=== PATIENT | male | born 1975 | race Two or more races ===

== ENCOUNTER 2020-09-26 22:49 | Emergency (ER) | payer OTHER ==
[~2020-09-26] VITALS: Ht 182.9 cm; Wt 136.1 kg
== END 2020-09-27 01:37 | disposition home or self-care (01) ==
LOC: ER 22:49
DX: B34.9 Viral infection, unspecified (principal); Z03.818 Encounter for observation for suspected exposure to other biological agents ruled out

== ENCOUNTER 2020-10-18 09:30 | Outpatient (CLI) | payer OTHER | END 2020-10-18 15:00 | disposition home or self-care (01) | LOC: PPH VACUNA 09:30 | DX: Z23 Encounter for immunization (principal) ==

== ENCOUNTER 2020-10-31 21:59 | Emergency (ER) | payer OTHER ==
[~2020-10-31] VITALS: Ht 182.9 cm; Wt 136.1 kg
== END 2020-10-31 22:39 | disposition home or self-care (01) ==
LOC: ER 21:59
DX: B34.9 Viral infection, unspecified (principal); Z20.828 Contact with and (suspected) exposure to other viral communicable diseases

== ENCOUNTER 2021-06-10 16:44 | Emergency (ER) | payer OTHER ==
[~2021-06-10] VITALS: Ht 177.8 cm; Wt 117.9 kg
== END 2021-06-10 18:11 | disposition home or self-care (01) ==
LOC: ER 16:44
DX: R05 Cough (principal); Z20.822 Contact with and (suspected) exposure to COVID-19

== ENCOUNTER 2021-07-31 08:00 | Outpatient (CLI) | payer OTHER | END 2021-07-31 08:30 | disposition home or self-care (01) | LOC: PPH VACUNA 08:00 | PROVIDERS: ATTEND Emergency Medicine Pediatric Emergency Medicine | DX: Z23 Encounter for immunization (principal) ==

== ENCOUNTER 2021-10-24 18:33 | Emergency (ER) | payer OTHER ==
[~2021-10-24] VITALS: Ht 182.9 cm; Wt 136.1 kg
== END 2021-10-24 20:09 | disposition home or self-care (01) ==
LOC: ER 18:33
DX: U07.1 COVID-19 (principal)

== ENCOUNTER 2021-10-30 11:53 | Emergency (ER) | payer OTHER ==
[~2021-10-30] VITALS: Ht 180.3 cm; Wt 95.3 kg
== END 2021-10-30 13:20 | disposition home or self-care (01) ==
LOC: ER 11:53
DX: B34.9 Viral infection, unspecified (principal); Z20.822 Contact with and (suspected) exposure to COVID-19

== ENCOUNTER 2023-02-27 09:48 | Emergency (ER) | payer OTHER ==
[~2023-02-27] VITALS: Ht 182.9 cm; Wt 136.1 kg
[2023-02-27] MEDS ORDERED: TRULICITY1.5 MG/0.5 SQ (09:53)
[2023-02-27] MEDS ORDERED: LOSARTAN-HCTZ1 EAC2 PO (09:53)
[2023-02-27] MEDS ORDERED: NORFLEX100MG PO (12:00)
[2023-02-27] MEDS ORDERED: ZITHROMAX500 MG PO (12:00)
== END 2023-02-27 12:17 | disposition home or self-care (01) ==
LOC: ER 09:48
DX: B34.9 Viral infection, unspecified (principal); Z20.822 Contact with and (suspected) exposure to COVID-19; I10 Essential (primary) hypertension; E11.9 Type 2 diabetes mellitus without complications